=== PATIENT | female | born 1985 | race Two or more races ===

== ENCOUNTER 2021-05-23 14:40 | Emergency (ER) | payer MEDICAID ==
[~2021-05-23] VITALS: Ht 157.5 cm; Wt 77.1 kg
--- NOTE | 2021-05-23 16:30 | NUR ---
URINE COLLECTED AND SENT TO LAB
--- NOTE | 2021-05-23 16:31 | NUR ---
US AT BEDSIDE
[2021-05-23 16:57] LABS: BILIRUBIN,URINE Negative (NEGATIVE); COLOR,URINE YELLOW (YELLOW); LEUKOCYTE ESTERASE ,URINE Negative (NEGATIVE); NITRITE, URINE Negative (NEGATIVE); PH,URINE 6.5 (5.0-8.0); PROTEIN,URINE Negative (NEGATIVE); UGLUCOSE Negative (NEGATIVE); UROBILINOGEN,URINE 0.2 EU/dL (0.2)
[2021-05-23 17:00] LABS: BACTERIA,URINE Rare /HPF (None Seen); SQUAMOUS EPITHELIAL CELL,UR Few /HPF (None Seen); WBC,URINE NONE SEEN /HPF (0-3)
[2021-05-23 17:16] LABS: BASOPHILS % (AUTO) 0.3 % (0.0-2.0); EOSINOPHILS % (AUTO) 2.1 % (0.0-6.0); HEMATOCRIT 32 % (33-45); HEMOGLOBIN 10.4 g/dL (11.5-14.8); LYMPHOCYTES # (AUTO) 2.9 K/uL (0.8-4.8); LYMPHOCYTES % (AUTO) 36.3 % (20.0-44.0); MEAN CORPUSCULAR HGB CONC 32 g/dl (31.0-36.0); MEAN CORPUSCULAR VOLUME 84 fL (82-100); MONOCYTES # (AUTO) 0.5 K/uL (0.1-1.30); MONOCYTES % (AUTO) 6.9 % (2.0-12.0); NEUTROPHILS # (AUTO) 4.3 K/uL (1.8-8.9); NEUTROPHILS % (AUTO) 54.4 % (43.0-81.0); PLATELET COUNT (AUTO) 280 K/uL (150-450); RED BLOOD CELL COUNT(AUTO) 3.83 MIL/uL (4.0-5.2); WHITE BLOOD COUNT (AUTO) 7.9 K/uL (4.3-11.0)
--- NOTE | 2021-05-23 18:55 | NUR ---
Patient discharged to home in stable condition. Written and verbal after care instructions given. Patient verbalizes understanding of instruction.
[2021-05-23 18:58] VITALS: BP 117/60
== END 2021-05-23 18:59 | disposition home or self-care (01) ==
LOC: ER 14:45
DX: O26.91 Pregnancy related conditions, unspecified, first trimester (principal); R10.31 Right lower quadrant pain; Z3A.01 Less than 8 weeks gestation of pregnancy
CPT/HCPCS: 36415; 76856-TC; 81001; 84702-TC; 85025-TC

== ENCOUNTER 2025-05-23 06:00 | Inpatient (IN) | payer MEDICAID, OTHER ==
[~2025-05-23] VITALS: Ht 160 cm; Wt 88.9 kg
[2025-05-23] MEDS ORDERED: ONDANSETRON HCL/PF 4 MG/2 ML VIAL ONE (06:36)
[2025-05-23] MEDS ORDERED: KETOROLAC TROMETHAMINE 15 MG/ML VIAL ONE (06:36)
[2025-05-23] MEDS ORDERED: SUCRALFATE 1 G/10 ML UDC ONE (06:36)
[2025-05-23] MEDS ORDERED: PANTOPRAZOLE 40 MG VIAL ONE (06:36)
[2025-05-23] MEDS: SUCRALFATE 1 G TABLET PO ONE (06:53)
[2025-05-23] MEDS: IV NS 0.9% 1,000 ML BAG IV ONE ×2 (06:53→07:40)
[2025-05-23] MEDS: PANTOPRAZOLE 40 MG VIAL IV ONE (06:53)
[2025-05-23] MEDS: ONDANSETRON HCL/PF - ER 4 MG/2 ML VIAL IV ONE (06:53)
[2025-05-23 06:56] LABS: PLATELET COUNT (AUTO) 243 K/uL (150-450); RED BLOOD CELL COUNT(AUTO) 4.67 MIL/uL (4.0-5.2); RED CELL DISTRIBUTION WIDTH 14.5 % (11.5-15.0); WHITE BLOOD COUNT (AUTO) 11.3 K/uL (4.3-11.0)
[2025-05-23 06:58] VITALS: O2SAT 97
[2025-05-23 07:03] LABS: CALCIUM, SERUM 9.2 mg/dL (8.5-10.1); CREATININE 0.8 mg/dL (0.6-1.3); SODIUM SERUM 138 mmol/L (136-145); UREA NITROGEN, BLOOD 8 mg/dL (7-18)
[2025-05-23 07:08] LABS: ASPARTATE AMINOTRANSFERASE 332 U/L (15-37); TOTAL PROTEIN, SERUM 7.5 g/dL (6.4-8.2)
[2025-05-23] MEDS: KETOROLAC TROMETHAMINE 15 MG/ML VIAL IV ONE ×2 (07:25→13:24)
[2025-05-23] MEDS ORDERED: MORPHINE SULFATE INJ 4 MG/ML DISP.SYRIN ONE (07:37)
[2025-05-23] MEDS: MORPHINE SULFATE INJ 2 MG/ML DISP.SYRIN IV ONE (07:40)
[2025-05-23 07:46] LABS: APPEARANCE,URINE CLEAR (CLEAR); BLOOD, URINE 3+ Ery/uL (NEGATIVE); LEUKOCYTE ESTERASE ,URINE NEGATIVE (NEGATIVE); NITRITE, URINE NEGATIVE (NEGATIVE); UGLUCOSE TRACE mg/dL (NEGATIVE)
[2025-05-23 07:47] LABS: ADD URINE CULTURE NO; PREGNANCY TEST URINE QUAL NEGATIVE (NEGATIVE); SQUAMOUS EPITHELIAL CELL,UR Rare /HPF (None Seen)
[2025-05-23] MEDS ORDERED: IOHEXOL-300 100 ML VIAL IV ONE (08:03)
[2025-05-23] MEDS ORDERED: IV NS 0.9% 250 ML IV ONE (08:03)
[2025-05-23 10:44] LABS: INR 1.04 (0.91-1.10)
[2025-05-23] MEDS ORDERED: ACETAMINOPHEN 325 MG TABLET PO PRN (11:00)
[2025-05-23] MEDS ORDERED: MAG HYDROX/AL HYDROX/SIMETH 30 ML UDC PO PRN (11:00)
[2025-05-23] MEDS ORDERED: Z GUARD REMEDY 4 OZ OINT TP PRN (11:00)
[2025-05-23] MEDS ORDERED: MAGNESIUM HYDROXIDE 30 ML UDC PO PRN (11:00)
[2025-05-23] MEDS: IV NS 0.9% 1,000 ML IV PRN (12:05)
[2025-05-23] MEDS: METRONIDAZOLE 500MG/ NS 100ML 500 MG in PREMIX 1 EA IV SCH (12:05)
[2025-05-23] MEDS: LEVOFLOXACIN 750 MG /D5W 150ML 750 MG in PREMIX 1 EA IV SCH (13:18)
[2025-05-23 20:00] VITALS: BP 104/47; TEMP 97.7; O2SAT 100
[2025-05-24] MEDS: HYDROMORPHONE 1 MG/1 ML DISP.SYRIN IV PRN (05:31)
[2025-05-24 07:47] LABS: PLATELET COUNT (AUTO) 245 K/uL (150-450); RED BLOOD CELL COUNT(AUTO) 4.20 MIL/uL (4.0-5.2); RED CELL DISTRIBUTION WIDTH 14.7 % (11.5-15.0); WHITE BLOOD COUNT (AUTO) 11.0 K/uL (4.3-11.0)
[2025-05-24 08:00] VITALS: BP 103/64; TEMP 98.6; O2SAT 99
[2025-05-24 08:04] LABS: CALCIUM, SERUM 8.9 mg/dL (8.5-10.1); CREATININE 0.9 mg/dL (0.6-1.3); PHOSPHORUS 3.2 mg/dL (2.5-4.9); SODIUM SERUM 134.0 mmol/L (136-145); TOTAL PROTEIN, SERUM 6.8 g/dL (6.4-8.2); UREA NITROGEN, BLOOD 9.0 mg/dL (7-18)
[2025-05-24 08:54] LABS: ASPARTATE AMINOTRANSFERASE 108.0 U/L (15-37)
[2025-05-24] MEDS: PANTOPRAZOLE 40 MG VIAL IV SCH (09:15)
[2025-05-24] MEDS: POTASSIUM CL. PREMIX PERIPHER. 50 ML IV SCH (11:05)
[2025-05-24 16:00] VITALS: BP 125/65; TEMP 97.9; O2SAT 99
[2025-05-24 20:00] VITALS: BP 118/70; TEMP 98.2; O2SAT 99
[2025-05-25 07:00] VITALS: BP_SYST 110; BP_SYST 125; BP_DIAS 77; BP_DIAS 81; TEMP 97.5; TEMP 98.1; O2SAT 96; O2SAT 98
[2025-05-25 07:27] LABS: PLATELET COUNT (AUTO) 266 K/uL (150-450); RED BLOOD CELL COUNT(AUTO) 4.37 MIL/uL (4.0-5.2); RED CELL DISTRIBUTION WIDTH 14.6 % (11.5-15.0); WHITE BLOOD COUNT (AUTO) 10.0 K/uL (4.3-11.0)
[2025-05-25 08:02] LABS: ASPARTATE AMINOTRANSFERASE 46.0 U/L (15-37); CALCIUM, SERUM 8.7 mg/dL (8.5-10.1); CREATININE 0.7 mg/dL (0.6-1.3); SODIUM SERUM 136.0 mmol/L (136-145); TOTAL PROTEIN, SERUM 6.6 g/dL (6.4-8.2); UREA NITROGEN, BLOOD 8.0 mg/dL (7-18)
[2025-05-25 16:00] VITALS: BP 125/82; TEMP 97.7; O2SAT 100
[2025-05-26 07:19] LABS: PLATELET COUNT (AUTO) 290 K/uL (150-450); RED BLOOD CELL COUNT(AUTO) 4.61 MIL/uL (4.0-5.2); RED CELL DISTRIBUTION WIDTH 14.7 % (11.5-15.0); WHITE BLOOD COUNT (AUTO) 8.9 K/uL (4.3-11.0)
[2025-05-26 07:51] LABS: ASPARTATE AMINOTRANSFERASE 26.0 U/L (15-37); CALCIUM, SERUM 9.0 mg/dL (8.5-10.1); CREATININE 0.8 mg/dL (0.6-1.3); SODIUM SERUM 139.0 mmol/L (136-145); TOTAL PROTEIN, SERUM 7.1 g/dL (6.4-8.2); UREA NITROGEN, BLOOD 7.0 mg/dL (7-18)
[2025-05-26 08:18] VITALS: BP 108/69; TEMP 98.6; O2SAT 98
[2025-05-26] MEDS: POTASSIUM CHLORIDE 20 MEQ TAB.PRT.SR PO ONE (09:36)
[2025-05-26] MEDS: LEVOFLOXACIN (250MG) 250 MG TABLET PO SCH (10:52)
[2025-05-26] MEDS: METRONIDAZOLE 500 MG TABLET PO SCH (12:52)
== END 2025-05-26 13:14 | disposition home or self-care (01) | DRG 444 ==
LOC: ER 06:04 → MED 10:26
PROVIDERS: ADMIT Nurse Practitioner Acute Care
DX: K80.20 Calculus of gallbladder without cholecystitis without obstruction (principal); K85.10 Biliary acute pancreatitis without necrosis or infection; E66.9 Obesity, unspecified; R74.01 Elevation of levels of liver transaminase levels; D72.829 Elevated white blood cell count, unspecified; Z68.34 Body mass index [BMI] 34.0-34.9, adult; Z71.3 Dietary counseling and surveillance; Z53.29 Procedure and treatment not carried out because of patient's decision for other reasons
CPT/HCPCS: 36415; 74181-TC; 76705-TC; 80048-TC; 80053-TC; 80076-TC; 81001; 83690-TC; 83735-TC; 84100-TC; 84703-TC; 85025-TC; 85610-TC; 86850-TC; 87086-TC; A4216; A4223; G0378; J1171; J1885; J1956; J2270; J2405; J2470; J3480; J7030; J7050; Q9967